=== PATIENT | male | born 1995 | race African-American/Black ===

== ENCOUNTER 2018-11-22 17:37 | Emergency (ER) | payer SELFPAY ==
[2018-11-22] MEDS ORDERED: Ondansetron ODT 4 MG TAB ONE (18:50)
== END 2018-11-22 18:50 | disposition home or self-care (01) ==
LOC: NAV ERS 17:37
DX: R10.13 Epigastric pain (principal); R11.2 Nausea with vomiting, unspecified; F17.210 Nicotine dependence, cigarettes, uncomplicated
CPT/HCPCS: 99283; Q0162

== ENCOUNTER 2020-02-16 12:40 | Emergency (ER) | payer BC ==
[2020-02-16] MEDS ORDERED: Adacel (T-DAP) 0.5 ML SYRINGE ONE (13:01)
[2020-02-16] MEDS ORDERED: Bacitracin 1 PK ONE (13:01)
== END 2020-02-16 13:10 | disposition home or self-care (01) ==
LOC: NAV ERS 12:40
DX: T22.212A Burn of second degree of left forearm, initial encounter (principal); S13.4XXA Sprain of ligaments of cervical spine, initial encounter; F17.290 Nicotine dependence, other tobacco product, uncomplicated; V49.9XXA Car occupant (driver) (passenger) injured in unspecified traffic accident, initial encounter
CPT/HCPCS: 90471; 90715